=== PATIENT | male | born 1930 | race Hispanic/Latino ===

== ENCOUNTER 2019-09-10 16:04 | Emergency (ER) | payer MEDICARE ==
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
[2019-09-10 17:11] VITALS: BP 152/67
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
[2019-09-10] MEDS ORDERED: TETANUS,DIPH,PERTUSS(ACELL) VACCINE 0.5 ML SYRINGE IM ONE (20:51)
== END 2019-09-10 21:06 | disposition home or self-care (01) ==
LOC: ED 16:04
DX: S61.412A Laceration without foreign body of left hand, initial encounter (principal); S09.90XA Unspecified injury of head, initial encounter; I10 Essential (primary) hypertension; Z79.899 Other long term (current) drug therapy; Z88.0 Allergy status to penicillin; V89.2XXA Person injured in unspecified motor-vehicle accident, traffic, initial encounter; Y93.89 Activity, other specified; Y92.410 Unspecified street and highway as the place of occurrence of the external cause; Y99.8 Other external cause status
CPT/HCPCS: 70450; 90471; 90715